=== PATIENT | female | born 1960 | race Caucasian/White ===

== ENCOUNTER 2021-08-22 08:35 | Day surgery (SDC) | payer OTHER ==
[2021-08-22 08:52] LABS: Absolute Lymphocytes (CBC) 2.9 K/uL (0.7-4.9); Hematocrit 44.1 % (36.0-45.0); Lymphocytes % 34.5 % (15.3-44.8); MPV 10.1 fL (7.6-11.3); RBC Red Blood Cell Count 4.88 M/uL (3.86-4.86)
[2021-08-22 09:10] LABS: Potassium 4.7 mmol/L (3.5-5.1)
[2021-08-22] MEDS ORDERED: LIDOCAINE 2% MPF 5 ML VIAL ONE (09:14)
[2021-08-22] MEDS ORDERED: FENTANYL CITR 100 MCG/2 ML ONE (09:14)
[2021-08-22] MEDS ORDERED: ONDANSETRON 4 MG/2 ML VIAL ONE (09:14)
[2021-08-22] MEDS ORDERED: KETOROLAC 30 MG/ML INJ ONE (09:14)
[2021-08-22] MEDS ORDERED: MIDAZOLAM HCL 2 MG/2 ML INJ ONE (09:14)
[2021-08-22] MEDS ORDERED: propofoL 200 MG/20 ML VIAL IV ONE (09:14)
[2021-08-22] MEDS ORDERED: dexAMETHasone 10 MG/ML VIAL ONE (09:14)
--- NOTE | 2021-08-22 09:15 | RAD REPORT ---
EXAM DESCRIPTION: RAD - Chest Pa And Lat (2 Views) - 08/22/2021 8:27 am CLINICAL HISTORY: Pre Op pending breast mass removal Chest pain. COMPARISON: <Comparisons> FINDINGS: The lungs are clear. The heart is normal in size. No displaced fractures. IMPRESSION: No acute or concerning finding suspected. The USPSTF recommends annual screening for lung cancer with low-dose CT (LDCT) in adults aged 50 to 80 years who have a 20 pack-year smoking history and currently smoke or have quit within the past 15 years.
[2021-08-22] MEDS ORDERED: BUPIVACAINE 0.5% PF 10 ML VIAL ONE (09:30)
[2021-08-22] MEDS: Ringers Lactate 1,000 ML IV ONE (09:40)
[2021-08-22] MEDS ORDERED: CEFAZOLIN/NS 1gm 1 GM/50 ML BAG ONE (10:42)
[2021-08-22 10:55] VITALS: TEMP 97
[2021-08-22 11:18] VITALS: BP 146/68; O2SAT 100
[2021-08-22] MEDS ORDERED: CODEINE 30MG/APAP 300MG TAB ONE (11:29)
--- NOTE | 2021-08-22 20:46 | OP ---
Date of Procedure: 08/22/2021 Surgeon: David Steiner MD Preoerative Diagnosis: Left breast mass with a nonhealing wound. Postoperative Diagnosis: Left breast mass with a nonhealing wound. Procedure: Wide excision of left breast mass 5 x 2 cm with layered closure. Estimated Blood Loss: Minimal. Specimen: Left breast mass. Findings: Above. Anesthesia: General. Complications: None. Disposition: The patient in stable condition, taken to recovery room in good general condition. Description Of Procedure: The patient was brought to the OR and placed in supine position. General anesthesia began. The patient was prepped and draped in the usual sterile fashion. Marcaine 0.5% in flated locally. A 15 blade was used to make a 5 x 2 cm incision to excise the nonhealing wound assoc iated with the cyst in the inframammary fold on the left breast, subcu tissue divided entire mass inc luding the sac, excised, sent to Pathology as specimen. Wound irrigated. Bleeding controlled with c autery and then 2-0 chromic was used to approximate the subcutaneous tissue and close the skin. Ster ile dressing applied. The patient was awakened and taken to Recovery in good general condition. Discharge Note: The patient will go to Day Surgery and home when stable. Disposition: Home. Condition: Stable. Discharge Instructions: Resume home medications and diet. Activity as tolerated. No heavy lifting. Remove outer dressing in 2 days. Shower. Keep wound clean and dry. Follow up in my office in 1 w unga. Call for appointment. Tylenol No. 3 one tablet p.o. q.4 p.r.n. pain, Keflex 500 mg p.o. q.6 ho urs. /MODL Voice ID: [id number] Report ID: [id number]
== END 2021-08-22 11:45 | disposition home or self-care (01) ==
LOC: OR 08:35
PROVIDERS: ATTEND Surgery
PROC: 0HBU0ZZ Excision of Left Breast, Open Approach (ICD-10-PCS; principal; 2021-08-22 10:30)
DX: N63.10 Unspecified lump in the right breast, unspecified quadrant (principal); N63.20 Unspecified lump in the left breast, unspecified quadrant; T81.89XD Other complications of procedures, not elsewhere classified, subsequent encounter; S21.002D Unspecified open wound of left breast, subsequent encounter; Z20.822 Contact with and (suspected) exposure to COVID-19; I96 Gangrene, not elsewhere classified
CPT/HCPCS: 93005; 85025; 80048; 36415; 88304; 71046; 19120; U0003; J2704; J2250; J3010; J1100; J0690; J7120; J2405; 88305